=== PATIENT | female | born 1945 | race Caucasian/White ===

== ENCOUNTER 2019-08-24 19:19 | Emergency (ER) | payer MEDICARE, OTHER ==
[~2019-08-24] VITALS: Ht 160 cm; Wt 52.3 kg
[~2019-08-24 19:19] MED LIST: LIDOcaine 1% W/epiNEPHrine 1:100,000 20ml vial ONE
[2019-08-24 19:23] VITALS: BP 186/92
[2019-08-24] MEDS ORDERED: CHOL400T57 PO (20:15)
[2019-08-24] MEDS ORDERED: LEVE750T PO (20:15)
[2019-08-24] MEDS ORDERED: SYN0.088T PO (20:15)
[2019-08-24] MEDS ORDERED: DESV50TA PO (20:15)
[2019-08-24] MEDS ORDERED: OXCA600T37 PO (20:15)
== END 2019-08-24 21:48 | disposition home or self-care (01) ==
LOC: ER 19:20
DX: S01.01XA Laceration without foreign body of scalp, initial encounter (principal); F03.90 Unspecified dementia, unspecified severity, without behavioral disturbance, psychotic disturbance, mood disturbance, and anxiety; Z86.69 Personal history of other diseases of the nervous system and sense organs; Z88.0 Allergy status to penicillin; Z88.2 Allergy status to sulfonamides; Z79.899 Other long term (current) drug therapy; W18.39XA Other fall on same level, initial encounter; Y93.01 Activity, walking, marching and hiking; Y92.89 Other specified places as the place of occurrence of the external cause; Y99.8 Other external cause status
CPT/HCPCS: 12001; 70450; 99284

== ENCOUNTER 2020-09-09 08:51 | Outpatient (CLI) | payer MEDICARE, OTHER ==
[~2020-09-09 08:51] MED LIST changes: +CHOL400T57 PO; +DESV50TA PO; +LEVE750T PO; -LIDOcaine 1% W/epiNEPHrine 1:100,000 20ml vial ONE; +OXCA600T37 PO; +SYN0.088T PO
== END 2020-09-09 23:59 | disposition home or self-care (01) ==
LOC: RAD 08:51
DX: G40.219 Localization-related (focal) (partial) symptomatic epilepsy and epileptic syndromes with complex partial seizures, intractable, without status epilepticus (principal)
CPT/HCPCS: 95816

== ENCOUNTER 2022-06-14 09:41 | Emergency (ER) | payer MEDICARE, OTHER ==
[~2022-06-14] VITALS: Ht 157.5 cm; Wt 52.7 kg
[2022-06-14 10:11] VITALS: BP 138/74
[2022-06-14] MEDS ORDERED: HYDR-3965 PO (11:34)
[2022-06-14] MEDS ORDERED: HYDROcodone/acetaminophen 5mg/325mg tablet PO ONE (11:35)
== END 2022-06-14 12:06 | disposition home or self-care (01) ==
LOC: ER 09:42
DX: S42.291A Other displaced fracture of upper end of right humerus, initial encounter for closed fracture (principal); F03.90 Unspecified dementia, unspecified severity, without behavioral disturbance, psychotic disturbance, mood disturbance, and anxiety; Y93.89 Activity, other specified; X58.XXXA Exposure to other specified factors, initial encounter; Y92.89 Other specified places as the place of occurrence of the external cause; Y99.8 Other external cause status; Z88.0 Allergy status to penicillin; Z88.2 Allergy status to sulfonamides; Z79.899 Other long term (current) drug therapy
CPT/HCPCS: 73030; 99283

== ENCOUNTER 2022-07-03 06:10 | Inpatient (IN) | payer MEDICARE, OTHER, MEDICAID ==
[2022-06-30 16:49] LABS: BASOPHILS # (AUTO) 0.1 X10'3 (0-0.2); EOSINOPHILS # (AUTO) 0.2 X10'3 (0-0.9); MONOCYTES # (AUTO) 0.6 X10'3 (0-0.9); PRE OP HEMOGLOBIN 14.6 g/dL (12.0-16.0)
[2022-06-30 16:51] LABS: BASOPHILS % (AUTO) 0.7 % (0-1); EOSINOPHILS % (AUTO) 1.6 % (0-6); LYMPHOCYTES # (AUTO) 0.9 X10'3 (1.1-4.8); LYMPHOCYTES % (AUTO) 8.8 % (21-51); MEAN CORPUSCULAR HEMOGLOBIN 30.8 PG (27.0-31.0); MEAN CORPUSCULAR HGB CONC 32.2 g/dL (33.0-36.5); MEAN CORPUSCULAR VOLUME 95.7 FL (78-98); MEAN PLATELET VOLUME 9.2 FL (7.4-10.4); MONOCYTES % (AUTO) 5.4 % (2-12); NEUTROPHILS # (AUTO) 8.6 X10'3 (1.8-7.7); NEUTROPHILS % (AUTO) 83.5 % (42-75); PRE OP HEMATOCRIT 45.2 % (35.0-45.0); PRE OP PLATELET COUNT 567 X10'3 (140-440); RED BLOOD COUNT 4.72 X10'6 (4.20-5.60)
[2022-06-30 16:58] LABS: ALBUMIN 3.6 G/DL (3.4-5.0); ALBUMIN/GLOBULIN RATIO 0.9 (1.1-1.5); ALKALINE PHOSPHATASE 144 IU/L (46-116); BLOOD UREA NITROGEN 19 MG/DL (7-18); BUN/CREATININE RATIO 21.3 (6.6-38.0); CALCIUM 8.8 MG/DL (8.5-10.1); CHLORIDE 99 MMOL/L (99-107); CREATININE 0.89 MG/DL (0.40-0.90); PRE OP ALT 20 U/L (30-65); PRE OP ANION GAP 9 (8-16); PRE OP AST 24 U/L (10-37); PRE OP BILIRUB, TOTAL 0.3 MG/DL (0.0-1.0); PRE OP GLUCOSE 155 MG/DL (70-104); PRE OP POTASSIUM 3.9 MMOL/L (3.4-5.1); PRE OP SODIUM 133 MMOL/L (135-145); TOTAL CARBON DIOXIDE 24.9 MMOL/L (24-32); TOTAL PROTEIN 7.5 G/DL (6.4-8.2); eGFR 61 ML/MIN
[2022-07-03] VITALS (29 sets, daily range): BP systolic 116–156; BP diastolic 56–93
[~2022-07-03] VITALS: Ht 157.5 cm; Wt 52.9 kg
[~2022-07-03 06:10] MED LIST changes: -CHOL400T57 PO; +CHOL50CA2 PO; +DONE-46 PO; +LEVE500T PO; -LEVE750T PO; +LEVO112T5 PO; +LOPE-190 PO; +MV-M1TAB57 PO; +OXCA300T16 PO; -OXCA600T37 PO; -SYN0.088T PO; +ceFAZolin inj. 2,000 MG in dextrose 5%-water 100 ML IV ONE; +famotidine 20mg tablet PO ONE; +ringers solution, lacted 1,000 ML IV SCH; +tranexamic acid 650mg tablet PO ONE; +vancomycin/NS 1 GM in NS 250 ML IV ONE
[2022-07-03] MEDS ORDERED: ROPIVAcaine 0.5% (5mg/ml) 30ml vial ONE ×2 (08:42→10:33)
[2022-07-03] MEDS ORDERED: ketorolac trometh. 30mg/ml inj. ONE (08:42)
[2022-07-03] MEDS ORDERED: sevoflurane 250ml liquid IH ONE (09:12)
[2022-07-03] MEDS ORDERED: midazolam 1 mg/ML 2ml injection ONE (09:19)
[2022-07-03] MEDS ORDERED: FENTANYL CITRATE/PF 50 MCG/1 ML VIAL ONE (09:19)
--- NOTE | 2022-07-03 09:40 | NUR ---
CMS NOTE: PT AND CAREGIVER STATED THEY DID NOT RECEIVE RX FOR MUPIROCIN OINTMENT SO IT WAS NOT USED. PT CAREGIVER ALSO STATED THEY DID NOT DO 5 DAYS ON SHOWERING WITH HIBICLENS BUT DID PERFORM 3 SHOWERS WITH IT. PT HAS PALPABLE BILAT RADIAL PULSED. PT WAS INSTRUCTED ON USE OF IS AND RETURN DEMONSTRATION WAS PERFORMED.
[2022-07-03] MEDS ORDERED: ondansetron/PF 4mg/2ml inj IV PRN ×2 (10:25→11:40)
[2022-07-03] MEDS ORDERED: labetalol 20mg/4ml (5mg/ml) syringe IV PRN (10:25)
[2022-07-03] MEDS ORDERED: ringers solution, lacted 1,000 ML IV SCH (10:25)
[2022-07-03] MEDS ORDERED: HYDROmorphone/PF 0.2 MG/ML SYRINGE IV PRN ×2 (10:25)
[2022-07-03] MEDS ORDERED: acetaminophen 1,000mg/100ml IV 100 ML IV PRN (10:25)
[2022-07-03] MEDS ORDERED: morphine 2 MG/ML inj. syringe IV PRN (10:25)
[2022-07-03] MEDS ORDERED: proCHLORperazine 10 MG/2 ml inj IV PRN (10:25)
[2022-07-03] MEDS ORDERED: hydrALAZINE 20mg/ml inj. IV PRN (10:25)
[2022-07-03] MEDS ORDERED: ROPIVAcaine 0.2% (10 MG/5 ML) BOLUS INJECTION INTERSCALE PRN (10:25)
[2022-07-03] MEDS ORDERED: morphine 4 MG/ML inj SYRINge IV PRN (10:25)
[2022-07-03] MEDS ORDERED: meperidine/PF 25mg/ml syringe IV PRN (10:25)
[2022-07-03] MEDS ORDERED: ondansetron/PF 4mg/2ml inj ONE (10:33)
[2022-07-03] MEDS ORDERED: rocuronium 10mg/ml inj IV ONE (10:33)
[2022-07-03] MEDS ORDERED: dexamethasone sod phosphate 4mg/ml inj. ONE (10:33)
[2022-07-03] MEDS ORDERED: LIDOcaine 1%/PF 5ML 10 MG/ML VIAL ONE (10:33)
[2022-07-03] MEDS ORDERED: LIDOcaine 2% (20mg/ml) 5ml vial ONE (10:33)
[2022-07-03] MEDS ORDERED: propofol inj 20 ML IV ONE (10:33)
[2022-07-03] MEDS ORDERED: ePHEDrine 50MG/ML INJ. ONE ×2 (10:33→11:28)
[2022-07-03] MEDS ORDERED: 0.9 % SODIUM CHLORIDE 10 ML VIAL ONE ×2 (10:33→11:28)
--- NOTE | 2022-07-03 11:39 | NUR ---
Received from OR via BED IN STABLE CONDITION , accompanied by Anesthesiologist and SOAKER HELPER report given by SOAKER HELPER AND Anesthesiolgist. Addendum: 07/03/22 at 1200 by Fiorella Moyer RN Amended: Links added.
[2022-07-03] MEDS ORDERED: loperamide 2mg capsule PO PRN (11:40)
[2022-07-03] MEDS ORDERED: HYDROcodone/acetaminophen 10/325mg tab PO PRN ×2 (11:40)
[2022-07-03] MEDS ORDERED: HYDROmorphone inj. 0.5 MG/0.5 ML DISP.SYRIN IV PRN (11:40)
[2022-07-03] MEDS ORDERED: magnesium hydroxide 30ml (MOM) UD suspension PO PRN (11:40)
[2022-07-03] MEDS ORDERED: oxyCODONE IR 5mg (immed. release) tablet PO PRN ×2 (11:40)
[2022-07-03] MEDS ORDERED: naloxone 0.4 mg/ml inj IV PRN (11:40)
[2022-07-03] MEDS ORDERED: acetaminophen 325mg tablet PO PRN (11:40)
[2022-07-03] MEDS ORDERED: diphenhydrAMINE 25mg capsule PO PRN ×2 (11:40)
[2022-07-03] MEDS ORDERED: HYDROmorphone 1 mg/ml syringe IV PRN (11:40)
[2022-07-03] MEDS ORDERED: bisacodyl 10mg suppository rectal RC PRN (11:40)
[2022-07-03] MEDS: ROPIVAcaine 0.2%/PF PUMP/bolus 545 ML INTERSCALE SCH (11:52)
[2022-07-03] MEDS: acetaminophen 325mg tablet PO SCH ×2 (14:00→20:27)
--- NOTE | 2022-07-03 15:39 | NUR ---
PATIENT DISCHARGED FROM PACU IN STABLE CONDITION AFTER REPORT GIVEN TO RN TAKING OVER PATIENTS CARE. PATIENT TRANSFERRED TO ROOM 346A VIA BED WITH RN X2. Addendum: 07/03/22 at 1550 by Fiorella Moyer RN Amended: Links added.
--- NOTE | 2022-07-03 15:45 | NUR ---
Received patient from recovery. Admitted for reverse right shoulder arthroplasty done by Dr. Donald. Dressing to right shoulder is CDI, wrap and powder pack in place with On-Q set a 4, radial pulse is present.
[2022-07-03] MEDS: potassium cl 20mEq in 1/2 NS 1,000 ML IV SCH ×2 (17:44→19:24)
--- NOTE | 2022-07-03 18:52 | NUR ---
Problems reprioritized. Patient report given, questions answered & plan of care reviewed with SONYA Johnson.
[2022-07-03] MEDS: ceFAZolin/D5W- 1GM premix 50 ML IV SCH (19:24)
[2022-07-03] MEDS ORDERED: vancomycin/NS 1 GM ADD-VANTAGE 250 ML IV SCH (20:00)
[2022-07-03] MEDS: sennosides 8.6mg tablet PO SCH (21:00)
--- NOTE | 2022-07-03 21:20 | NUR ---
Increased On Q to 6
[2022-07-03] MEDS: oxcarbazepine 150mg tablet PO SCH (21:21)
[2022-07-03] MEDS: donepezil 5mg tablet PO SCH (21:21)
[2022-07-03] MEDS: levetiracetam 250mg tablet PO SCH (21:22)
[2022-07-04] MEDS: ceFAZolin/D5W- 1GM premix 50 ML IV SCH (01:21)
[2022-07-04] MEDS: acetaminophen 325mg tablet PO SCH ×4 (01:22→20:25)
--- NOTE | 2022-07-04 01:50 | NUR ---
Introduced to IS and how to use it
[2022-07-04] MEDS: potassium cl 20mEq in 1/2 NS 1,000 ML IV SCH (02:14)
[2022-07-04 06:30] VITALS: BP 141/61
--- NOTE | 2022-07-04 06:34 | NUR ---
Problems reprioritized. Patient report given, questions answered & plan of care reviewed with Art. Addendum: 07/04/22 at 0635 by Shiva Dillard RN Amended: Links added.
[2022-07-04] MEDS: levetiracetam 250mg tablet PO SCH ×2 (07:14→20:25)
[2022-07-04] MEDS: oxcarbazepine 150mg tablet PO SCH ×2 (07:14→20:25)
[2022-07-04] MEDS: cholecalciferol (vitamin D3) 1,000 unit (25mcg) tablet PO SCH (07:15)
[2022-07-04] MEDS: beta-carotene(A) w/C & E + minerals tab PO SCH (07:15)
[2022-07-04] MEDS: DESVENLAFAXINE SUCCINATE 50 MG PO SCH (07:15)
[2022-07-04] MEDS: levoTHYROXINE 112mcg tablet PO SCH (07:15)
[2022-07-04 07:28] LABS: BASOPHILS # (AUTO) 0.1 X10'3 (0-0.2); BASOPHILS % (AUTO) 0.5 % (0-1); EOSINOPHILS # (AUTO) 0.1 X10'3 (0-0.9); EOSINOPHILS % (AUTO) 0.6 % (0-6); HEMATOCRIT 32.7 % (35.0-45.0); HEMOGLOBIN 11.1 g/dl (12.0-16.0); LYMPHOCYTES % (AUTO) 8.1 % (21-51); MEAN CORPUSCULAR HEMOGLOBIN 32.1 PG (27.0-31.0); MEAN CORPUSCULAR HGB CONC 34.1 g/dL (33.0-36.5); MEAN CORPUSCULAR VOLUME 94.1 FL (78-98); MEAN PLATELET VOLUME 8.7 FL (7.4-10.4); MONOCYTES # (AUTO) 0.8 X10'3 (0-0.9); NEUTROPHILS # (AUTO) 9.9 X10'3 (1.8-7.7); NEUTROPHILS % (AUTO) 83.8 % (42-75); PLATELET COUNT 431 X10'3 (140-440); RED BLOOD COUNT 3.47 X10'6 (4.20-5.60); RED CELL DISTRIBUTION WIDTH 16.8 % (11.5-14.5); WHITE BLOOD COUNT 11.9 X10'3 (4.5-11.0)
[2022-07-04 09:46] LABS: ANION GAP 6 (8-16); CHLORIDE 97 MMOL/L (99-107); SODIUM 130 MMOL/L (135-145); TOTAL CARBON DIOXIDE 27.3 MMOL/L (24-32)
[2022-07-04] MEDS: aspirin 325mg tablet PO SCH (10:45)
--- NOTE | 2022-07-04 10:56 | NUR ---
attempted to call dr renteria about pts lab Na, pt is on fluids with 1/2 ns
[2022-07-04 11:00] VITALS: BP 133/67
[2022-07-04] MEDS: normal saline 1000ml 1,000 ML IV SCH ×2 (12:18→23:36)
[2022-07-04] MEDS ORDERED: HYDROcodone/acetaminophen 5mg/325mg tablet PO PRN ×2 (14:00)
[2022-07-04] MEDS ORDERED: traMADol 50MG tablet PO PRN ×2 (14:00)
[2022-07-04] MEDS ORDERED: ketorolac tromethamine 15mg/ml inj. IV ONE (14:00)
--- NOTE | 2022-07-04 15:40 | NUR ---
Dr Donald called patients son King and spoke to him re: Dr Donald does not believe patient needs to go to rehab, he feels her needs are more penitentiary needs. Patients son Per Dr Donald states that [facility] will take the patient. Per Dr Donald ok for patient to go to [facility].
[2022-07-04 18:00] VITALS: BP 168/78
--- NOTE | 2022-07-04 18:23 | NUR ---
Problems reprioritized. Patient report given, questions answered & plan of care reviewed with ajay cole.
[2022-07-04] MEDS: sennosides 8.6mg tablet PO SCH (20:21)
[2022-07-04] MEDS: donepezil 5mg tablet PO SCH (20:24)
[2022-07-04 22:00] VITALS: BP 190/85
[2022-07-04 23:45] VITALS: BP 172/89
[2022-07-05 02:00] VITALS: BP 166/82
[2022-07-05] MEDS: acetaminophen 325mg tablet PO SCH ×2 (02:36→08:10)
[2022-07-05 05:00] VITALS: BP 165/66
[2022-07-05 06:46] LABS: BASOPHILS % (AUTO) 0.4 % (0-1); EOSINOPHILS # (AUTO) 0.2 X10'3 (0-0.9); EOSINOPHILS % (AUTO) 1.6 % (0-6); HEMATOCRIT 32.7 % (35.0-45.0); HEMOGLOBIN 11.1 g/dl (12.0-16.0); LYMPHOCYTES # (AUTO) 0.7 X10'3 (1.1-4.8); LYMPHOCYTES % (AUTO) 7.1 % (21-51); MEAN CORPUSCULAR HEMOGLOBIN 31.8 PG (27.0-31.0); MEAN CORPUSCULAR HGB CONC 33.8 g/dL (33.0-36.5); MEAN CORPUSCULAR VOLUME 94.1 FL (78-98); MEAN PLATELET VOLUME 8.8 FL (7.4-10.4); MONOCYTES # (AUTO) 0.8 X10'3 (0-0.9); MONOCYTES % (AUTO) 7.9 % (2-12); NEUTROPHILS # (AUTO) 8.2 X10'3 (1.8-7.7); PLATELET COUNT 418 X10'3 (140-440); RED BLOOD COUNT 3.48 X10'6 (4.20-5.60); RED CELL DISTRIBUTION WIDTH 16.6 % (11.5-14.5); WHITE BLOOD COUNT 9.8 X10'3 (4.5-11.0)
--- NOTE | 2022-07-05 07:00 | NUR ---
Patient in room [facility]. I have received report from Selina and had the opportunity to ask questions and assume patient care.
[2022-07-05] MEDS: DESVENLAFAXINE SUCCINATE 50 MG PO SCH (08:00)
[2022-07-05] MEDS: levoTHYROXINE 112mcg tablet PO SCH (08:09)
[2022-07-05] MEDS: oxcarbazepine 150mg tablet PO SCH ×2 (08:09→20:49)
[2022-07-05] MEDS: cholecalciferol (vitamin D3) 1,000 unit (25mcg) tablet PO SCH (08:09)
[2022-07-05] MEDS: beta-carotene(A) w/C & E + minerals tab PO SCH (08:09)
[2022-07-05] MEDS: levetiracetam 250mg tablet PO SCH ×2 (08:10→20:49)
[2022-07-05] MEDS: aspirin 325mg tablet PO SCH (09:42)
[2022-07-05 11:00] VITALS: BP 177/77
[2022-07-05] MEDS ORDERED: acetaminophen 325mg tablet PO PRN (11:40)
--- NOTE | 2022-07-05 16:22 | NUR ---
Pt believed to have had an unwitnessed seizure this morning after breakfast. Pt was up in chair for breakfast and then returned to bed after. Pt appeared to be sleeping deeply. Pt very difficult to arouse but did open eyes and respond briefly. Pt would immediately fall back asleep. Pt was believed to be post ictal. Caregiver came to visit pt and said that pt did not appear to be in her normal state. Pt did wake up at lunchtime and was very confused. Pt did not know where she was or why she was here. She believed her was still alive and wanted to go home. Tracey Angulo ordered labs, shoulder xray, blue liliam consult and hospitalist consultation. Pt currently resting in bed awake, but still confused as to why she is here.
[2022-07-05] MEDS ORDERED: hydrALAZINE 20mg/ml inj. IV ONE (16:30)
[2022-07-05] MEDS: ROPIVAcaine 0.2%/PF PUMP/bolus 545 ML INTERSCALE SCH (16:43)
[2022-07-05 18:00] VITALS: BP 138/58
--- NOTE | 2022-07-05 18:07 | NUR ---
Problems reprioritized. Patient report given, questions answered & plan of care reviewed with Selina.
[2022-07-05] MEDS: sennosides 8.6mg tablet PO SCH (20:45)
[2022-07-05] MEDS: donepezil 5mg tablet PO SCH (20:50)
[2022-07-05] MEDS: normal saline 1000ml 1,000 ML IV SCH (20:50)
[2022-07-05 22:00] VITALS: BP 178/71
[2022-07-06 02:00] VITALS: BP 124/77
[2022-07-06 06:33] LABS: BASOPHILS # (AUTO) 0.1 X10'3 (0-0.2); BASOPHILS % (AUTO) 0.7 % (0-1); EOSINOPHILS # (AUTO) 0.3 X10'3 (0-0.9); EOSINOPHILS % (AUTO) 2.6 % (0-6); HEMATOCRIT 34.6 % (35.0-45.0); HEMOGLOBIN 11.6 g/dl (12.0-16.0); LYMPHOCYTES # (AUTO) 0.9 X10'3 (1.1-4.8); LYMPHOCYTES % (AUTO) 7.9 % (21-51); MEAN CORPUSCULAR HEMOGLOBIN 31.7 PG (27.0-31.0); MEAN CORPUSCULAR HGB CONC 33.6 g/dL (33.0-36.5); MEAN CORPUSCULAR VOLUME 94.5 FL (78-98); MEAN PLATELET VOLUME 8.8 FL (7.4-10.4); MONOCYTES # (AUTO) 0.8 X10'3 (0-0.9); MONOCYTES % (AUTO) 6.8 % (2-12); NEUTROPHILS # (AUTO) 9.3 X10'3 (1.8-7.7); PLATELET COUNT 469 X10'3 (140-440); RED BLOOD COUNT 3.66 X10'6 (4.20-5.60); WHITE BLOOD COUNT 11.4 X10'3 (4.5-11.0)
[2022-07-06 06:57] LABS: ALANINE AMINOTRANSFERASE 15 U/L (12-78); ALBUMIN 3.1 G/DL (3.4-5.0); ALBUMIN/GLOBULIN RATIO 0.9 (1.1-1.5); ALKALINE PHOSPHATASE 113 IU/L (46-116); ANION GAP 6 (8-16); ASPARTATE AMINO TRANSFERASE 25 U/L (10-37); BILIRUBIN,TOTAL 0.5 MG/DL (0.1-1.0); BLOOD UREA NITROGEN 8 MG/DL (7-18); CALCIUM 7.7 MG/DL (8.5-10.1); CHLORIDE 100 MMOL/L (99-107); GLUCOSE 92 MG/DL (70-104); SODIUM 135 MMOL/L (135-145); TOTAL CARBON DIOXIDE 28.6 MMOL/L (24-32); TOTAL PROTEIN 6.6 G/DL (6.4-8.2); eGFR > 90 ML/MIN
[2022-07-06 06:58] LABS: POTASSIUM 2.9 MMOL/L (3.5-5.1)
[2022-07-06 07:00] VITALS: BP 183/78
--- NOTE | 2022-07-06 07:06 | NUR ---
PAGER ID: [phone] MESSAGE: [phone] Gali Carmichael: critical K 2.9. would you like replacement protocol ordered? thanks, gissell [phone]
[2022-07-06] MEDS: levoTHYROXINE 112mcg tablet PO SCH (07:56)
[2022-07-06] MEDS: beta-carotene(A) w/C & E + minerals tab PO SCH (07:56)
[2022-07-06] MEDS: levetiracetam 250mg tablet PO SCH (07:57)
[2022-07-06] MEDS: cholecalciferol (vitamin D3) 1,000 unit (25mcg) tablet PO SCH (07:57)
[2022-07-06] MEDS: aspirin 325mg tablet PO SCH (07:57)
[2022-07-06] MEDS: oxcarbazepine 150mg tablet PO SCH (07:57)
[2022-07-06] MEDS: normal saline 1000ml 1,000 ML IV SCH (08:00)
[2022-07-06] MEDS: DESVENLAFAXINE SUCCINATE 50 MG PO SCH (08:00)
[2022-07-06] MEDS ORDERED: potassium Cl 20 mEq SR tablet PO PRN ×2 (10:15)
[2022-07-06] MEDS ORDERED: magnesium 2GM in 50ml NS 50 ML IV PRN (10:15)
[2022-07-06] MEDS ORDERED: magnesium 4gm in 100ml NS 100 ML IV PRN (10:15)
[2022-07-06] MEDS ORDERED: potassium Cl 40MEQ/1/2NS 520ml 520 ML IV PRN (10:15)
[2022-07-06] MEDS ORDERED: magnesium Cl slow-release 64mg tablet PO PRN (10:15)
--- NOTE | 2022-07-06 11:24 | NUR ---
Report called to Michelle at [facility], all questions answered. IV removed, all belongings gathered in room. Awaiting transportation.
[2022-07-06 11:30] VITALS: BP 175/79
[2022-07-06] MEDS ORDERED: K and/or MAG REPLACEMENT MC SCH (20:00)
== END 2022-07-06 12:02 | DRG 483 ==
LOC: PAS IN 06:10 → SUR 3N 15:53
PROVIDERS: ADMIT Orthopaedic Surgery; ATTEND Orthopaedic Surgery
PROC: 0LS30ZZ Reposition Right Upper Arm Tendon, Open Approach (ICD-10-PCS; 2022-07-03)
PROC: 3E0T3BZ Introduction of Anesthetic Agent into Peripheral Nerves and Plexi, Percutaneous Approach (ICD-10-PCS; 2022-07-03)
PROC: 3E0T33Z Introduction of Anti-inflammatory into Peripheral Nerves and Plexi, Percutaneous Approach (ICD-10-PCS; 2022-07-03)
PROC: 0RRJ00Z Replacement of Right Shoulder Joint with Reverse Ball and Socket Synthetic Substitute, Open Approach (ICD-10-PCS; principal; 2022-07-03 09:16)
DX: S42.241A 4-part fracture of surgical neck of right humerus, initial encounter for closed fracture (principal); D62 Acute posthemorrhagic anemia; E87.1 Hypo-osmolality and hyponatremia; G40.802 Other epilepsy, not intractable, without status epilepticus; Z20.822 Contact with and (suspected) exposure to COVID-19; M19.011 Primary osteoarthritis, right shoulder; F32.A Depression, unspecified; E03.9 Hypothyroidism, unspecified; R41.0 Disorientation, unspecified; Z88.0 Allergy status to penicillin; Z88.2 Allergy status to sulfonamides; Z79.899 Other long term (current) drug therapy
CPT/HCPCS: 36415; 73020; 80051; 80053; 80177; 80183; 82948; 85025; 87081; 87635; 93005; 97110; 97116; 97161; 97530; A4615; G0378; J0360; J0690; J1100; J1170; J1885; J2250; J2405; J2704; J2795; J3010; J3370; J3480; J3490; J7030; J7060; J7120

== ENCOUNTER 2023-06-29 20:16 | Emergency (ER) | payer MEDICARE, OTHER, MEDICAID ==
[~2023-06-29] VITALS: Ht 149.9 cm; Wt 55.0 kg
[~2023-06-29 20:16] MED LIST changes: -ceFAZolin inj. 2,000 MG in dextrose 5%-water 100 ML IV ONE; -famotidine 20mg tablet PO ONE; -ringers solution, lacted 1,000 ML IV SCH; -tranexamic acid 650mg tablet PO ONE; -vancomycin/NS 1 GM in NS 250 ML IV ONE
[2023-06-29 21:07] LABS: BASOPHILS # (AUTO) 0.1 X10'3 (0-0.2); EOSINOPHILS # (AUTO) 0.2 X10'3 (0-0.9); EOSINOPHILS % (AUTO) 1.6 % (0-6); LYMPHOCYTES # (AUTO) 0.9 X10'3 (1.1-4.8); MONOCYTES # (AUTO) 0.5 X10'3 (0-0.9)
[2023-06-29 21:08] LABS: BASOPHILS % (AUTO) 0.4 % (0-1); HEMATOCRIT 53.1 % (35.0-45.0); HEMOGLOBIN 16.8 g/dl (12.0-16.0); LYMPHOCYTES % (AUTO) 6.1 % (21-51); MEAN CORPUSCULAR HEMOGLOBIN 25.7 PG (27.0-31.0); MEAN CORPUSCULAR HGB CONC 31.7 g/dL (33.0-36.5); MEAN CORPUSCULAR VOLUME 81.2 FL (78-98); MEAN PLATELET VOLUME 8.5 FL (7.4-10.4); MONOCYTES % (AUTO) 3.4 % (2-12); NEUTROPHILS # (AUTO) 13.1 X10'3 (1.8-7.7); NEUTROPHILS % (AUTO) 88.5 % (42-75); PLATELET COUNT 526 X10'3 (140-440); RED BLOOD COUNT 6.54 X10'6 (4.20-5.60); RED CELL DISTRIBUTION WIDTH 18.8 % (11.5-14.5); WHITE BLOOD COUNT 14.8 X10'3 (4.5-11.0)
[2023-06-29 21:22] LABS: ALANINE AMINOTRANSFERASE 32 U/L (12-78); ALBUMIN 3.5 G/DL (3.4-5.0); ALBUMIN/GLOBULIN RATIO 0.8 (1.1-1.5); ALKALINE PHOSPHATASE 122 IU/L (46-116); ANION GAP 10 (8-16); ASPARTATE AMINO TRANSFERASE 43 U/L (10-37); BILIRUBIN,TOTAL 0.6 MG/DL (0.1-1.0); BLOOD UREA NITROGEN 10 MG/DL (7-18); BUN/CREATININE RATIO 17.9 (10.0-20.0); CALCIUM 8.9 MG/DL (8.5-10.1); CHLORIDE 94 MMOL/L (99-107); CREATININE 0.56 MG/DL (0.40-0.90); GLUCOSE 121 MG/DL (70-104); POTASSIUM 3.9 MMOL/L (3.5-5.1); SODIUM 132 MMOL/L (135-145); TOTAL CARBON DIOXIDE 27.9 MMOL/L (24-32); TOTAL PROTEIN 7.9 G/DL (6.4-8.2); eCRCL 56 ML/MIN; eGFR > 90 ML/MIN
[2023-06-29 21:31] LABS: PRO BRAIN NATRIURETIC PEPTIDE 871 PG/ML (0-450)
[2023-06-29 21:39] LABS: ANISOCYTOSIS 2+; HYPOCHROMASIA 1+; POIKILOCYTOSIS 2+
[2023-06-29 21:40] LABS: ELLIPTOCYTES 2+; SCHISTOCYTES FEW
[2023-06-29 21:41] LABS: LARGE PLATELETS FEW; PLATELET ESTIMATE INCREASED
[2023-06-29] MEDS ORDERED: normal saline 1000ML IV soln IVB ONE (21:45)
[2023-06-29 23:09] LABS: BILIRUBIN,URINE NEGATIVE (Neg); CLARITY,URINE SLIGHTLY CLOUDY (Clear); COLOR,URINE YELLOW (Yellow); GLUCOSE, URINE NEGATIVE (Neg); KETONES,URINE TRACE mg/dl (Neg); LEUKOCYTE ESTERASE ,URINE SMALL (Neg); NITRITES, URINE NEGATIVE (Neg); OCCULT BLOOD,URINE NEGATIVE (Neg); PROTEIN,URINE 30 mg/dl (Neg); UROBILINOGEN,URINE 0.2 E.U/dL (0.2-1.0)
[2023-06-29 23:24] LABS: UA COLLECTION TYPE CLN CATCH MIDSTREAM
[2023-06-29 23:25] LABS: MUCUS STRANDS FEW /LPF (Neg); SQUAMOUS EPITHELIAL CELL,UR MODERATE /LPF (FEW)
[2023-06-29 23:28] LABS: BACTERIA,URINE 3+ /HPF (Neg); RBC,URINE NONE SEEN /HPF (0-2)
[2023-06-29] MEDS ORDERED: CIPR-260 PO (23:39)
[2023-06-29] MEDS ORDERED: ciprofloxacin 250mg tablet PO ONE (23:40)
[2023-06-29 23:57] VITALS: BP 175/95; PULSE 77; RESP 16; TEMP 98.7; O2SAT 95
== END 2023-06-29 23:58 | disposition home or self-care (01) ==
LOC: ER 20:16
DX: N39.0 Urinary tract infection, site not specified (principal)
CPT/HCPCS: 36415; 71045; 80053; 81001; 83880; 84145; 84484; 85008; 85025; 93005; 99285; J7030; J7040

== ENCOUNTER 2023-07-19 12:04 | Inpatient (IN) | payer MEDICARE, OTHER, MEDICAID ==
[~2023-07-19] VITALS: Ht 157.5 cm; Wt 52.5 kg
[~2023-07-19 12:04] MED LIST changes: +CIPR-260 PO
[2023-07-19 12:30] LABS: BASOPHILS # (AUTO) 0.1 X10'3 (0-0.2); BASOPHILS % (AUTO) 0.3 % (0-1); EOSINOPHILS % (AUTO) 0 % (0-6); HEMATOCRIT 50.7 % (35.0-45.0); HEMOGLOBIN 16.2 g/dl (12.0-16.0); LYMPHOCYTES # (AUTO) 0.4 X10'3 (1.1-4.8); LYMPHOCYTES % (AUTO) 2.2 % (21-51); MEAN CORPUSCULAR HEMOGLOBIN 26.1 PG (27.0-31.0); MEAN CORPUSCULAR HGB CONC 31.9 g/dL (33.0-36.5); MEAN CORPUSCULAR VOLUME 81.8 FL (78-98); MEAN PLATELET VOLUME 8.5 FL (7.4-10.4); MONOCYTES # (AUTO) 1.3 X10'3 (0-0.9); NEUTROPHILS # (AUTO) 16.3 X10'3 (1.8-7.7); NEUTROPHILS % (AUTO) 90.5 % (42-75); PLATELET COUNT 501 X10'3 (140-440)
[2023-07-19 12:50] LABS: ALANINE AMINOTRANSFERASE 43 U/L (12-78); ALBUMIN 3.1 G/DL (3.4-5.0); ALBUMIN/GLOBULIN RATIO 0.7 (1.1-1.5); ALKALINE PHOSPHATASE 168 IU/L (46-116); ANION GAP 10 (8-16); ASPARTATE AMINO TRANSFERASE 37 U/L (10-37); BLOOD UREA NITROGEN 16 MG/DL (7-18); BUN/CREATININE RATIO 23.5 (10.0-20.0); CALCIUM 9.1 MG/DL (8.5-10.1); CHLORIDE 94 MMOL/L (99-107); CREATININE 0.68 MG/DL (0.40-0.90); GLUCOSE 124 MG/DL (70-104); POTASSIUM 3.9 MMOL/L (3.5-5.1); SODIUM 128 MMOL/L (135-145); TOTAL CARBON DIOXIDE 23.8 MMOL/L (24-32); TOTAL PROTEIN 7.8 G/DL (6.4-8.2); eCRCL 53 ML/MIN; eGFR 83 ML/MIN
[2023-07-19 13:00] LABS: PRO BRAIN NATRIURETIC PEPTIDE 7892 PG/ML (0-450)
[2023-07-19 13:25] LABS: ANISOCYTOSIS 2+; GIANT PLATELET FEW; LARGE PLATELETS FEW; NUCLEATED RED BLOOD CELLS 1 /100WBC (0-0); PLATELET ESTIMATE INCREASED; POLYCHROMASIA FEW; TEAR DROP CELLS FEW; TOTAL CELLS COUNTED 100
[2023-07-19 13:26] LABS: POIKILOCYTOSIS 1+
[2023-07-19] MEDS: dexamethasone sod phosphate 10mg/ml inj IM STA (13:44)
[2023-07-19 13:45] VITALS: PULSE 85; RESP 16; RESP 18; O2SAT 92; O2SAT 98
[2023-07-19] MEDS: ipratropium/albuterol 3ml nebule NEB STA (13:45)
[2023-07-19] MEDS ORDERED: magnesium 2GM in 50ml NS 50 ML IV PRN (22:25)
[2023-07-19] MEDS ORDERED: ondansetron/PF 4mg/2ml inj IV PRN (22:25)
[2023-07-19] MEDS ORDERED: magnesium Cl slow-release 64mg tablet PO PRN (22:25)
[2023-07-19] MEDS ORDERED: potassium Cl 20 mEq SR tablet PO PRN (22:25)
[2023-07-19] MEDS ORDERED: potassium Cl 40MEQ/1/2NS 520ml 520 ML IV PRN (22:25)
[2023-07-19] MEDS ORDERED: acetaminophen 325mg tablet PO PRN (22:25)
[2023-07-19] MEDS ORDERED: magnesium 4gm in 100ml NS 100 ML IV PRN (22:25)
[2023-07-19] MEDS: levoFLOXACIN-Levaquin 500mg/D5 100 ML IV SCH (22:55)
[2023-07-20] VITALS (16 sets, daily range): BP systolic 138–152; BP diastolic 78–84; PULSE 78–103; RESP 16–25; TEMP 97.7–98.1; O2SAT 92–97
[2023-07-20] MEDS: albuterol 2.5 MG/3 ML nebule NEB SCH (00:52)
[2023-07-20] MEDS: furosemide 40mg/4ml inj IV SCH (07:21)
[2023-07-20] MEDS: heparin, porcine 5000 units/ml vial SQ SCH (07:27)
[2023-07-20] MEDS ORDERED: furosemide 40mg/4ml inj IV SCH (08:00)
[2023-07-20 08:19] LABS: BASOPHILS % (AUTO) 0.2 % (0-1); EOSINOPHILS % (AUTO) 0.2 % (0-6); HEMATOCRIT 46.7 % (35.0-45.0); HEMOGLOBIN 14.8 g/dl (12.0-16.0); LYMPHOCYTES # (AUTO) 0.8 X10'3 (1.1-4.8); LYMPHOCYTES % (AUTO) 4.8 % (21-51); MEAN CORPUSCULAR HEMOGLOBIN 25.6 PG (27.0-31.0); MEAN CORPUSCULAR HGB CONC 31.6 g/dL (33.0-36.5); MEAN CORPUSCULAR VOLUME 81.1 FL (78-98); MEAN PLATELET VOLUME 8.6 FL (7.4-10.4); MONOCYTES # (AUTO) 1.3 X10'3 (0-0.9); MONOCYTES % (AUTO) 7.6 % (2-12); NEUTROPHILS # (AUTO) 14.6 X10'3 (1.8-7.7); NEUTROPHILS % (AUTO) 87.2 % (42-75); PLATELET COUNT 474 X10'3 (140-440); RED BLOOD COUNT 5.76 X10'6 (4.20-5.60); RED CELL DISTRIBUTION WIDTH 19.7 % (11.5-14.5); WHITE BLOOD COUNT 16.8 X10'3 (4.5-11.0)
[2023-07-20 08:34] LABS: ALANINE AMINOTRANSFERASE 43 U/L (12-78); ALBUMIN 2.6 G/DL (3.4-5.0); ALBUMIN/GLOBULIN RATIO 0.6 (1.1-1.5); ALKALINE PHOSPHATASE 145 IU/L (46-116); ANION GAP 10 (8-16); ASPARTATE AMINO TRANSFERASE 40 U/L (10-37); BILIRUBIN,TOTAL 0.6 MG/DL (0.1-1.0); BLOOD UREA NITROGEN 18 MG/DL (7-18); CALCIUM 8.5 MG/DL (8.5-10.1); CHLORIDE 94 MMOL/L (99-107); CREATININE 0.62 MG/DL (0.40-0.90); GLUCOSE 97 MG/DL (70-104); POTASSIUM 3.5 MMOL/L (3.5-5.1); SODIUM 129 MMOL/L (135-145); TOTAL CARBON DIOXIDE 24.6 MMOL/L (24-32); TOTAL PROTEIN 6.9 G/DL (6.4-8.2); eCRCL 58 ML/MIN; eGFR > 90 ML/MIN
[2023-07-20 14:21] LABS: ABG BASE EXCESS 2.8 mmol/L (-2.0-2.0); ABG HCO3 24.4 mmol/L (22.0-26.0); ABG OXYGEN SATURATION 94.2 % (94-97); ABG PCO2 (T) 29.9 mmHg (32.0-45.0); ABG PO2 (T) 67.2 mmHg (75.0-100.0); ALLEN'S TEST POSITIVE; FCOHb 0.3 % (0.0-3.9); FHHb 5.8 % (0.0-5.0); FMetHb 0.5 % (0.0-1.5); FO2Hb 93.4 % (94-97); MODE NASAL CANNULA
[2023-07-20] MEDS: carVEDilol 3.125mg tablet PO SCH (20:07)
[2023-07-20] MEDS: donepezil 5mg tablet PO SCH (20:12)
[2023-07-20] MEDS: levetiracetam 250mg tablet PO SCH (20:12)
[2023-07-20] MEDS: oxcarbazepine 150mg tablet PO SCH (23:51)
[2023-07-21] VITALS (15 sets, daily range): BP systolic 111–148; BP diastolic 59–88; PULSE 6–96; RESP 4–31; TEMP 97.2–98; O2SAT 90–100
[2023-07-21 07:00] LABS: BASOPHILS # (AUTO) 0.1 X10'3 (0-0.2); EOSINOPHILS % (AUTO) 0.2 % (0-6); HEMOGLOBIN 14.7 g/dl (12.0-16.0); MEAN CORPUSCULAR HEMOGLOBIN 25.5 PG (27.0-31.0); MEAN PLATELET VOLUME 8.9 FL (7.4-10.4); RED CELL DISTRIBUTION WIDTH 19.6 % (11.5-14.5)
[2023-07-21 07:02] LABS: HEMATOCRIT 46.5 % (35.0-45.0); LYMPHOCYTES # (AUTO) 0.9 X10'3 (1.1-4.8); LYMPHOCYTES % (AUTO) 6.4 % (21-51); MEAN CORPUSCULAR HGB CONC 31.7 g/dL (33.0-36.5); MEAN CORPUSCULAR VOLUME 80.6 FL (78-98); MONOCYTES # (AUTO) 1.2 X10'3 (0-0.9); MONOCYTES % (AUTO) 8.6 % (2-12); NEUTROPHILS # (AUTO) 11.6 X10'3 (1.8-7.7); NEUTROPHILS % (AUTO) 83.8 % (42-75); PLATELET COUNT 481 X10'3 (140-440); RED BLOOD COUNT 5.77 X10'6 (4.20-5.60); WHITE BLOOD COUNT 13.8 X10'3 (4.5-11.0)
[2023-07-21 07:03] LABS: ALANINE AMINOTRANSFERASE 44 U/L (12-78); ALBUMIN 2.5 G/DL (3.4-5.0); ALBUMIN/GLOBULIN RATIO 0.6 (1.1-1.5); ALKALINE PHOSPHATASE 137 IU/L (46-116); ANION GAP 10 (8-16); ASPARTATE AMINO TRANSFERASE 41 U/L (10-37); BILIRUBIN,TOTAL 0.6 MG/DL (0.1-1.0); BLOOD UREA NITROGEN 15 MG/DL (7-18); BUN/CREATININE RATIO 27.8 (10.0-20.0); CHLORIDE 96 MMOL/L (99-107); CREATININE 0.54 MG/DL (0.40-0.90); GLUCOSE 83 MG/DL (70-104); SODIUM 134 MMOL/L (135-145); TOTAL CARBON DIOXIDE 28.1 MMOL/L (24-32); TOTAL PROTEIN 6.7 G/DL (6.4-8.2); eCRCL 67 ML/MIN; eGFR > 90 ML/MIN
[2023-07-21 07:50] LABS: PLATELET ESTIMATE INCREASED; TOTAL CELLS COUNTED 100
[2023-07-21 07:51] LABS: ANISOCYTOSIS 2+; ELLIPTOCYTES FEW; POIKILOCYTOSIS FEW; POLYCHROMASIA FEW; TOXIC GRANULATION 1+; TOXIC VACUOLATION FEW
[2023-07-21] MEDS: venlafaxine 25mg tablet PO SCH (08:00)
[2023-07-21] MEDS: oxcarbazepine 150mg tablet PO SCH (08:00)
[2023-07-21] MEDS: potassium Cl 20 mEq SR tablet PO PRN (08:35)
[2023-07-21] MEDS: levoTHYROXINE 112mcg tablet PO SCH (08:36)
[2023-07-21] MEDS: multivitamins, therapeutics tablet PO SCH (08:36)
[2023-07-21] MEDS: cholecalciferol (vitamin D3) 1,000 unit (25mcg) tablet PO SCH (08:37)
[2023-07-21] MEDS: lisinopril 2.5mg tablet PO SCH (08:37)
[2023-07-21] MEDS: levetiracetam 250mg tablet PO SCH (08:38)
[2023-07-21] MEDS ORDERED: LACO100T4 PO (10:13)
[2023-07-21] MEDS: acetaminophen 325mg tablet PO PRN (16:57)
[2023-07-22] VITALS (8 sets, daily range): BP systolic 143–145; BP diastolic 72–84; PULSE 63–72; RESP 16–18; TEMP 97.8–98.8; O2SAT 92–100
[2023-07-22 06:08] LABS: BASOPHILS % (AUTO) 0 % (0-1); EOSINOPHILS # (AUTO) 0.2 X10'3 (0-0.9); EOSINOPHILS % (AUTO) 1.9 % (0-6); HEMATOCRIT 47.6 % (35.0-45.0); HEMOGLOBIN 15.1 g/dl (12.0-16.0); LYMPHOCYTES # (AUTO) 1.1 X10'3 (1.1-4.8); LYMPHOCYTES % (AUTO) 9.3 % (21-51); MEAN CORPUSCULAR HEMOGLOBIN 25.6 PG (27.0-31.0); MEAN CORPUSCULAR HGB CONC 31.7 g/dL (33.0-36.5); MEAN CORPUSCULAR VOLUME 80.8 FL (78-98); MEAN PLATELET VOLUME 8.6 FL (7.4-10.4); MONOCYTES # (AUTO) 0.7 X10'3 (0-0.9); MONOCYTES % (AUTO) 6.1 % (2-12); NEUTROPHILS # (AUTO) 9.6 X10'3 (1.8-7.7); NEUTROPHILS % (AUTO) 82.7 % (42-75); PLATELET COUNT 490 X10'3 (140-440); RED BLOOD COUNT 5.88 X10'6 (4.20-5.60); RED CELL DISTRIBUTION WIDTH 19.6 % (11.5-14.5); WHITE BLOOD COUNT 11.7 X10'3 (4.5-11.0)
[2023-07-22 06:30] LABS: ALANINE AMINOTRANSFERASE 47 U/L (12-78); ALBUMIN 2.3 G/DL (3.4-5.0); ALBUMIN/GLOBULIN RATIO 0.5 (1.1-1.5); ALKALINE PHOSPHATASE 130 IU/L (46-116); ANION GAP 8 (8-16); ASPARTATE AMINO TRANSFERASE 41 U/L (10-37); BILIRUBIN,TOTAL 0.5 MG/DL (0.1-1.0); BLOOD UREA NITROGEN 27 MG/DL (7-18); BUN/CREATININE RATIO 43.5 (10.0-20.0); CALCIUM 8.4 MG/DL (8.5-10.1); CHLORIDE 99 MMOL/L (99-107); CREATININE 0.62 MG/DL (0.40-0.90); GLUCOSE 94 MG/DL (70-104); POTASSIUM 3.7 MMOL/L (3.5-5.1); SODIUM 136 MMOL/L (135-145); TOTAL CARBON DIOXIDE 28.9 MMOL/L (24-32); TOTAL PROTEIN 6.8 G/DL (6.4-8.2); eCRCL 58 ML/MIN; eGFR > 90 ML/MIN
[2023-07-22] MEDS ORDERED: OXCA300T16 PO (11:45)
[2023-07-22] MEDS ORDERED: LISI2.5T14 PO (11:45)
[2023-07-22] MEDS ORDERED: LEVE500T PO (11:45)
[2023-07-22] MEDS ORDERED: COR3.125T PO (11:45)
[2023-07-22] MEDS ORDERED: FURO-150 PO (11:45)
[2023-07-22] MEDS ORDERED: LEVO-65 PO (11:47)
[2023-07-22] MEDS ORDERED: ALBU8HFA PO (11:47)
[2023-07-22] MEDS ORDERED: PRED20TA PO (11:51)
== END 2023-07-22 14:43 | disposition home or self-care (01) | DRG 871 ==
LOC: ER 12:06 → ED HOLD 22:30 → PCU 3S 07-20 17:16
PROVIDERS: ADMIT Internal Medicine; ATTEND Family Medicine
DX: A41.9 Sepsis, unspecified organism (principal); I50.23 Acute on chronic systolic (congestive) heart failure; J18.9 Pneumonia, unspecified organism; E87.1 Hypo-osmolality and hyponatremia; I11.0 Hypertensive heart disease with heart failure; F03.90 Unspecified dementia, unspecified severity, without behavioral disturbance, psychotic disturbance, mood disturbance, and anxiety; G40.909 Epilepsy, unspecified, not intractable, without status epilepticus; E03.9 Hypothyroidism, unspecified; D75.839 Thrombocytosis, unspecified; Z88.0 Allergy status to penicillin; Z88.2 Allergy status to sulfonamides
CPT/HCPCS: 36415; 36600; 71045; 80053; 82803; 83605; 83880; 84145; 84484; 85007; 85018; 85025; 85651; 87040; 87502; 87503; 87634; 87811; 93005; 93306; 94640; 94760; 99285; A4615; G0378; J1100; J1644; J1940; J1956; J7040

== ENCOUNTER 2024-02-18 09:40 | Emergency (ER) | payer MEDICARE, OTHER, MEDICAID ==
[~2024-02-18] VITALS: Ht 149.9 cm; Wt 50.6 kg
[~2024-02-18 09:40] MED LIST changes: -CIPR-260 PO; +COR3.125T PO; +FURO-150 PO; +LACO100T4 PO; +LISI2.5T14 PO
[2024-02-18 09:58] LABS: BASOPHILS # (AUTO) 0.1 X10'3 (0-0.2); BASOPHILS % (AUTO) 0.8 % (0-1); EOSINOPHILS % (AUTO) 0.4 % (0-6); HEMATOCRIT 36.3 % (35.0-45.0); HEMOGLOBIN 12.7 g/dl (12.0-16.0); LYMPHOCYTES # (AUTO) 0.9 X10'3 (1.1-4.8); LYMPHOCYTES % (AUTO) 12.4 % (21-51); MEAN CORPUSCULAR HEMOGLOBIN 39.3 PG (27.0-31.0); MEAN CORPUSCULAR VOLUME 112.3 FL (78-98); MEAN PLATELET VOLUME 7.6 FL (7.4-10.4); MONOCYTES # (AUTO) 0.4 X10'3 (0-0.9); MONOCYTES % (AUTO) 5.6 % (2-12); NEUTROPHILS # (AUTO) 5.7 X10'3 (1.8-7.7); NEUTROPHILS % (AUTO) 80.8 % (42-75); PLATELET COUNT 278 X10'3 (140-440); RED BLOOD COUNT 3.23 X10'6 (4.20-5.60); RED CELL DISTRIBUTION WIDTH 14.2 % (11.5-14.5); WHITE BLOOD COUNT 7.1 X10'3 (4.5-11.0)
[2024-02-18 10:13] VITALS: TEMP 97.9
[2024-02-18 10:17] LABS: ELLIPTOCYTES FEW; PLATELET ESTIMATE NORMAL; TEAR DROP CELLS FEW
[2024-02-18 10:18] LABS: ALBUMIN 3.5 G/DL (3.4-5.0); ANION GAP 10 (8-16); BLOOD UREA NITROGEN 21 MG/DL (7-18); BUN/CREATININE RATIO 21.6 (10.0-20.0); CHLORIDE 99 MMOL/L (99-107); CREATININE 0.97 MG/DL (0.40-0.90); GLUCOSE 123 MG/DL (70-104); POTASSIUM 4.2 MMOL/L (3.5-5.1); PRO BRAIN NATRIURETIC PEPTIDE 792 PG/ML (0-450); SODIUM 133 MMOL/L (135-145); TOTAL CARBON DIOXIDE 24.5 MMOL/L (24-32); eCRCL 32 ML/MIN; eGFR 55 ML/MIN
[2024-02-18] MEDS: normal saline 1000ml 1,000 ML IV ONE (10:43)
[2024-02-18 12:13] LABS: BILIRUBIN,URINE NEGATIVE (Neg); CLARITY,URINE CLEAR (Clear); COLOR,URINE YELLOW (Yellow); GLUCOSE, URINE NEGATIVE (Neg); KETONES,URINE NEGATIVE (Neg); LEUKOCYTE ESTERASE ,URINE NEGATIVE (Neg); NITRITES, URINE NEGATIVE (Neg); OCCULT BLOOD,URINE NEGATIVE (Neg); PROTEIN,URINE 30 mg/dl (Neg); UROBILINOGEN,URINE 0.2 E.U/dL (0.2-1.0)
[2024-02-18 12:19] LABS: UA COLLECTION TYPE CLN CATCH MIDSTREAM
[2024-02-18 12:22] LABS: HYALINE CASTS >30 /LPF (NEGATIVE); MUCUS STRANDS FEW /LPF (Neg); SQUAMOUS EPITHELIAL CELL,UR MODERATE /LPF (FEW)
[2024-02-18 12:23] LABS: BACTERIA,URINE NONE SEEN /HPF (Neg); CAL OXALATE CRYSTALS 4+ /HPF (NEGATIVE); FINE GRANULAR CAST 0-3 /LPF (NEGATIVE); RBC,URINE 0-2 /HPF (0-2); WBC,URINE 0-4 /HPF (0-4)
[2024-02-18 13:01] VITALS: BP 178/71; PULSE 68; RESP 18; O2SAT 97
== END 2024-02-18 13:02 | disposition home or self-care (01) ==
LOC: ER 09:40
DX: R55 Syncope and collapse (principal); E86.0 Dehydration; I25.10 Atherosclerotic heart disease of native coronary artery without angina pectoris; F03.90 Unspecified dementia, unspecified severity, without behavioral disturbance, psychotic disturbance, mood disturbance, and anxiety; Z88.0 Allergy status to penicillin; Z88.2 Allergy status to sulfonamides; Z79.899 Other long term (current) drug therapy
CPT/HCPCS: 36415; 71045; 80048; 81001; 83880; 84484; 85008; 85025; 93005; 96360; 99285; J7030

== ENCOUNTER 2024-03-06 11:37 | Inpatient (IN) | payer MEDICARE, OTHER, MEDICAID ==
[~2024-03-06] VITALS: Ht 149.9 cm; Wt 50.9 kg
[2024-03-06 12:12] LABS: ALBUMIN 3.6 G/DL (3.4-5.0); ANION GAP 6 (8-16); BLOOD UREA NITROGEN 13 MG/DL (7-18); BUN/CREATININE RATIO 20.3 (10.0-20.0); CALCIUM 8.5 MG/DL (8.5-10.1); CHLORIDE 96 MMOL/L (99-107); CREATININE 0.64 MG/DL (0.40-0.90); GLUCOSE 91 MG/DL (70-104); POTASSIUM 4.3 MMOL/L (3.5-5.1); SODIUM 129 MMOL/L (135-145); TOTAL CARBON DIOXIDE 27.5 MMOL/L (24-32); eCRCL 48 ML/MIN; eGFR 89 ML/MIN
[2024-03-06] MEDS: normal saline 1000ML IV soln IVB ONE (16:10)
[2024-03-06 16:19] LABS: BASOPHILS % (AUTO) 0.7 % (0-1); EOSINOPHILS % (AUTO) 0.7 % (0-6); HEMATOCRIT 40.7 % (35.0-45.0); HEMOGLOBIN 13.8 g/dl (12.0-16.0); LYMPHOCYTES % (AUTO) 15.9 % (21-51); MEAN CORPUSCULAR HEMOGLOBIN 38.6 PG (27.0-31.0); MEAN CORPUSCULAR HGB CONC 33.9 g/dL (33.0-36.5); MEAN CORPUSCULAR VOLUME 113.7 FL (78-98); MEAN PLATELET VOLUME 7.6 FL (7.4-10.4); MONOCYTES # (AUTO) 0.5 X10'3 (0-0.9); MONOCYTES % (AUTO) 8.3 % (2-12); NEUTROPHILS # (AUTO) 4.6 X10'3 (1.8-7.7); NEUTROPHILS % (AUTO) 74.4 % (42-75); PLATELET COUNT 305 X10'3 (140-440); RED BLOOD COUNT 3.58 X10'6 (4.20-5.60); RED CELL DISTRIBUTION WIDTH 14.2 % (11.5-14.5); WHITE BLOOD COUNT 6.2 X10'3 (4.5-11.0)
[2024-03-06 16:31] LABS: APTT 26 SECONDS (22-32); INR 1.1 INR
[2024-03-06 16:42] LABS: MAGNESIUM 1.5 MG/DL (1.5-2.4); PRO BRAIN NATRIURETIC PEPTIDE 541 PG/ML (0-450)
[2024-03-06 17:15] LABS: ALANINE AMINOTRANSFERASE 25 U/L (12-78); ALBUMIN 3.8 G/DL (3.4-5.0); ALKALINE PHOSPHATASE 66 IU/L (46-116); ASPARTATE AMINO TRANSFERASE 23 U/L (10-37); BILIRUBIN,DIRECT 0.1 MG/DL (0-0.3); BILIRUBIN,TOTAL 0.3 MG/DL (0.1-1.0); TOTAL PROTEIN 7.7 G/DL (6.4-8.2)
[2024-03-06 17:31] LABS: PLATELET ESTIMATE NORMAL
[2024-03-06 17:32] LABS: ELLIPTOCYTES FEW; TEAR DROP CELLS FEW
[2024-03-06] MEDS ORDERED: acetaminophen 325mg tablet PO PRN (17:55)
[2024-03-06] MEDS ORDERED: magnesium Cl slow-release 64mg tablet PO PRN (17:55)
[2024-03-06] MEDS ORDERED: mag hydrox/Alum hydrox/simeth 30ml oral suspension PO PRN (17:55)
[2024-03-06] MEDS ORDERED: magnesium hydroxide 30ml (MOM) UD suspension PO PRN (17:55)
[2024-03-06] MEDS ORDERED: potassium Cl 20 mEq SR tablet PO PRN ×2 (17:55)
[2024-03-06] MEDS ORDERED: ondansetron/PF 4mg/2ml inj IV PRN (17:55)
[2024-03-06] MEDS ORDERED: potassium Cl 40MEQ/1/2NS 520ml 520 ML IV PRN (17:55)
[2024-03-06] MEDS ORDERED: magnesium sulf-water 4G/100mL 100 ML IV PRN (17:55)
[2024-03-06] MEDS ORDERED: magnesium sulf-water 2g/50mL 50 ML IV PRN (17:55)
[2024-03-06] MEDS ORDERED: iohexol 350MG/ML 100ml bottle IV ONE (18:46)
[2024-03-06] MEDS: PERFLUTREN PROTEIN-A MICROSPHR (Optison) 0.22 MG/ML 3ML VIAL IV ONE (19:20)
[2024-03-06] MEDS: normal saline 1000ml 1,000 ML IV SCH (19:46)
[2024-03-06] MEDS: K and/or MAG REPLACEMENT MC SCH (20:00)
[2024-03-06] MEDS: oxcarbazepine 150mg tablet PO SCH (20:55)
[2024-03-06] MEDS: LACOSAMIDE 50 MG TABLET PO SCH (20:55)
[2024-03-06] MEDS: donepezil 5mg tablet PO SCH (20:56)
[2024-03-06] MEDS: levetiracetam 250mg tablet PO SCH (20:56)
[2024-03-06] MEDS: chlorthalidone 25mg tablet PO SCH (22:45)
[2024-03-06] MEDS: losartan 25mg tablet PO SCH (23:07)
[2024-03-06] MEDS: carVEDilol 12.5mg tablet PO SCH (23:07)
[2024-03-07] MEDS ORDERED: CALC500T63 PO (00:46)
[2024-03-07] MEDS ORDERED: HYDR500C2 PO (00:46)
[2024-03-07] MEDS: HYDROchlorothiazide 25mg tablet PO ONE (02:20)
[2024-03-07 03:36] LABS: BASOPHILS # (AUTO) 0.1 X10'3 (0-0.2); BASOPHILS % (AUTO) 1.3 % (0-1); EOSINOPHILS # (AUTO) 0.1 X10'3 (0-0.9); HEMATOCRIT 37.3 % (35.0-45.0); HEMOGLOBIN 12.8 g/dl (12.0-16.0); LYMPHOCYTES % (AUTO) 16.1 % (21-51); MEAN CORPUSCULAR HEMOGLOBIN 38.8 PG (27.0-31.0); MEAN CORPUSCULAR HGB CONC 34.3 g/dL (33.0-36.5); MEAN PLATELET VOLUME 7.8 FL (7.4-10.4); MONOCYTES # (AUTO) 0.5 X10'3 (0-0.9); NEUTROPHILS # (AUTO) 4.5 X10'3 (1.8-7.7); NEUTROPHILS % (AUTO) 73.6 % (42-75); PLATELET COUNT 287 X10'3 (140-440); RED CELL DISTRIBUTION WIDTH 14.1 % (11.5-14.5); WHITE BLOOD COUNT 6.2 X10'3 (4.5-11.0)
[2024-03-07 03:58] LABS: ALBUMIN 3.3 G/DL (3.4-5.0); ANION GAP 9 (8-16); BLOOD UREA NITROGEN 13 MG/DL (7-18); BUN/CREATININE RATIO 26.5 (10.0-20.0); CALCIUM 8.2 MG/DL (8.5-10.1); CHLORIDE 101 MMOL/L (99-107); CHOL/HDL RATIO 1.8 (0.00-4.99); CHOLESTEROL 204 MG/DL (0-200); CREATININE 0.49 MG/DL (0.40-0.90); GLUCOSE 97 MG/DL (70-104); HDL CHOLESTEROL 111 MG/DL (35-60); LDL CHOLESTEROL 65 MG/DL (50-100); POTASSIUM 3.9 MMOL/L (3.5-5.1); SODIUM 135 MMOL/L (135-145); THYROID STIMULATING HORMONE 4.95 ulU/ml (0.34-4.50); TOTAL CARBON DIOXIDE 24.8 MMOL/L (24-32); TRIGLYCERIDES 27 MG/DL (20-135); eCRCL 62 ML/MIN; eGFR > 90 ML/MIN
[2024-03-07] MEDS ORDERED: levoTHYROXINE 125mcg tablet PO SCH (07:00)
[2024-03-07] MEDS: DESVENLAFAXINE SUCCINATE 50 MG PO SCH (08:00)
[2024-03-07] MEDS: levoTHYROXINE 112mcg tablet PO SCH (08:00)
[2024-03-07] MEDS: cholecalciferol (vitamin D3) 1,000 unit (25mcg) tablet PO SCH (08:01)
[2024-03-07] MEDS: amLODIPine 5mg tablet PO SCH (08:01)
[2024-03-07] MEDS: HYDROchlorothiazide 25mg tablet PO SCH (08:02)
[2024-03-07] MEDS: lisinopril 2.5mg tablet PO SCH (08:02)
[2024-03-07] MEDS: carVEDilol 3.125mg tablet PO SCH (08:02)
[2024-03-07] MEDS: multivitamins, therapeutics tablet PO SCH (08:02)
[2024-03-07] MEDS: enoxaparin 40mg/0.4ml syringe SUBCUT SCH (08:03)
[2024-03-07] MEDS: hydrALAZINE 20mg/ml inj. IV SCH (09:15)
[2024-03-07 11:00] VITALS: BP 123/48; PULSE 63; RESP 16; RESP 18; TEMP 97.8; O2SAT 94; O2SAT 98
[2024-03-07] MEDS ORDERED: FOLI0.8T22 PO (15:34)
[2024-03-07] MEDS ORDERED: thiamine tablet PO (15:34)
[2024-03-07 16:00] VITALS: BP 148/69; PULSE 16; RESP 16; TEMP 98.3; O2SAT 97
[2024-03-07 18:00] VITALS: BP 152/63; PULSE 71; RESP 14; TEMP 98.2; O2SAT 95
[2024-03-07] MEDS: thiamine 100mg tablet PO SCH (20:09)
[2024-03-07 22:00] VITALS: BP_SYST 131; BP_SYST 160; BP_SYST 95; BP_DIAS 56; BP_DIAS 68; BP_DIAS 72; PULSE 71; PULSE 75; PULSE 82; RESP 16; TEMP 97.4; O2SAT 97
[2024-03-08] VITALS (7 sets, daily range): BP systolic 100–178; BP diastolic 53–86; PULSE 69–86; RESP 16; TEMP 97.2–98.4; O2SAT 97–99
[2024-03-08 06:29] LABS: BASOPHILS # (AUTO) 0.1 X10'3 (0-0.2); BASOPHILS % (AUTO) 1.1 % (0-1); EOSINOPHILS # (AUTO) 0.1 X10'3 (0-0.9); EOSINOPHILS % (AUTO) 1.7 % (0-6); LYMPHOCYTES # (AUTO) 1.2 X10'3 (1.1-4.8); MEAN CORPUSCULAR HEMOGLOBIN 38.6 PG (27.0-31.0); MEAN CORPUSCULAR HGB CONC 34.3 g/dL (33.0-36.5); MEAN CORPUSCULAR VOLUME 112.6 FL (78-98); MEAN PLATELET VOLUME 7.7 FL (7.4-10.4); MONOCYTES # (AUTO) 0.4 X10'3 (0-0.9); MONOCYTES % (AUTO) 6.7 % (2-12); NEUTROPHILS # (AUTO) 4.1 X10'3 (1.8-7.7); NEUTROPHILS % (AUTO) 69.5 % (42-75); PLATELET COUNT 295 X10'3 (140-440); RED BLOOD COUNT 3.38 X10'6 (4.20-5.60); RED CELL DISTRIBUTION WIDTH 14.1 % (11.5-14.5); WHITE BLOOD COUNT 5.9 X10'3 (4.5-11.0)
[2024-03-08 06:47] LABS: ALBUMIN 3.4 G/DL (3.4-5.0); ANION GAP 8 (8-16); BLOOD UREA NITROGEN 15 MG/DL (7-18); BUN/CREATININE RATIO 31.9 (10.0-20.0); CALCIUM 8.8 MG/DL (8.5-10.1); CHLORIDE 95 MMOL/L (99-107); CREATININE 0.47 MG/DL (0.40-0.90); GLUCOSE 90 MG/DL (70-104); POTASSIUM 3.7 MMOL/L (3.5-5.1); SODIUM 131 MMOL/L (135-145); TOTAL CARBON DIOXIDE 28.5 MMOL/L (24-32); eCRCL 65 ML/MIN; eGFR > 90 ML/MIN
[2024-03-08] MEDS: PERFLUTREN PROTEIN-A MICROSPHR (Optison) 0.22 MG/ML 3ML VIAL IV ONE (09:00)
[2024-03-08] MEDS: multivitamins, therapeutics tablet PO SCH (09:19)
[2024-03-08] MEDS: folic acid/vitamin B complex w/vitamin C 0.8mg tablet PO SCH (09:20)
[2024-03-08] MEDS: amLODIPine 5mg tablet PO SCH (09:30)
[2024-03-08] MEDS ORDERED: FLUD0.1T PO (15:44)
[2024-03-08] MEDS ORDERED: NOR5T PO (15:52)
[2024-03-08] MEDS ORDERED: LOSA25TA41 PO (15:52)
== END 2024-03-08 17:00 | disposition home or self-care (01) | DRG 101 ==
LOC: ER 11:38 → ED HOLD 17:57 → ORTHO 4S 03-07 10:55
PROVIDERS: ADMIT Family Medicine; ATTEND Family Medicine
PROC: B3251ZZ Computerized Tomography (CT Scan) of Bilateral Common Carotid Arteries using Low Osmolar Contrast (ICD-10-PCS; 2024-03-06)
PROC: B32G1ZZ Computerized Tomography (CT Scan) of Bilateral Vertebral Arteries using Low Osmolar Contrast (ICD-10-PCS; 2024-03-06)
PROC: B32R1ZZ Computerized Tomography (CT Scan) of Intracranial Arteries using Low Osmolar Contrast (ICD-10-PCS; 2024-03-06)
PROC: B3281ZZ Computerized Tomography (CT Scan) of Bilateral Internal Carotid Arteries using Low Osmolar Contrast (ICD-10-PCS; 2024-03-06)
PROC: 4A00X4Z Measurement of Central Nervous Electrical Activity, External Approach (ICD-10-PCS; 2024-03-06)
PROC: 4A00X4Z Measurement of Central Nervous Electrical Activity, External Approach (ICD-10-PCS; principal; 2024-03-07)
DX: G40.89 Other seizures (principal); E87.1 Hypo-osmolality and hyponatremia; S10.83XA Contusion of other specified part of neck, initial encounter; I95.1 Orthostatic hypotension; I11.0 Hypertensive heart disease with heart failure; F03.90 Unspecified dementia, unspecified severity, without behavioral disturbance, psychotic disturbance, mood disturbance, and anxiety; I50.9 Heart failure, unspecified; W18.39XA Other fall on same level, initial encounter; Y93.89 Activity, other specified; Y92.89 Other specified places as the place of occurrence of the external cause; Y99.8 Other external cause status; Z88.0 Allergy status to penicillin; Z88.2 Allergy status to sulfonamides; Z79.899 Other long term (current) drug therapy; Z90.49 Acquired absence of other specified parts of digestive tract
CPT/HCPCS: 36415; 70450; 70496; 70498; 71045; 80048; 80061; 80076; 83036; 83735; 83880; 83930; 84443; 84484; 85008; 85025; 85610; 85730; 87081; 92508; 92616; 93005; 95816; 96360; 97116; 97161; 97530; 99285; G0378; J0360; J1650; J7030; Q9967

== ENCOUNTER 2024-03-22 09:00 | Emergency (ER) | payer MEDICARE, OTHER, MEDICAID ==
[~2024-03-22] VITALS: Ht 160 cm; Wt 58.6 kg
[~2024-03-22 09:00] MED LIST changes: +CALC500T63 PO; +FLUD0.1T PO; +FOLI0.8T22 PO; -FURO-150 PO; +HYDR500C2 PO; -LISI2.5T14 PO; +LOSA25TA41 PO; +NOR5T PO; +thiamine tablet PO
[2024-03-22 09:03] VITALS: TEMP 97.7
[2024-03-22 10:43] LABS: BASOPHILS % (AUTO) 0.4 % (0-1); EOSINOPHILS # (AUTO) 0.1 X10'3 (0-0.9); EOSINOPHILS % (AUTO) 0.7 % (0-6); HEMATOCRIT 40.8 % (35.0-45.0); HEMOGLOBIN 13.6 g/dl (12.0-16.0); LYMPHOCYTES # (AUTO) 0.7 X10'3 (1.1-4.8); LYMPHOCYTES % (AUTO) 8.6 % (21-51); MEAN CORPUSCULAR HEMOGLOBIN 38.3 PG (27.0-31.0); MEAN CORPUSCULAR HGB CONC 33.4 g/dL (33.0-36.5); MEAN CORPUSCULAR VOLUME 114.6 FL (78-98); MEAN PLATELET VOLUME 7.7 FL (7.4-10.4); MONOCYTES # (AUTO) 0.4 X10'3 (0-0.9); MONOCYTES % (AUTO) 5.3 % (2-12); NEUTROPHILS # (AUTO) 6.8 X10'3 (1.8-7.7); PLATELET COUNT 320 X10'3 (140-440); RED BLOOD COUNT 3.56 X10'6 (4.20-5.60); RED CELL DISTRIBUTION WIDTH 13.9 % (11.5-14.5)
[2024-03-22 10:55] LABS: ALANINE AMINOTRANSFERASE 24 U/L (12-78); ALBUMIN 3.7 G/DL (3.4-5.0); ALKALINE PHOSPHATASE 58 IU/L (46-116); ANION GAP 7 (8-16); ASPARTATE AMINO TRANSFERASE 31 U/L (10-37); BILIRUBIN,TOTAL 0.4 MG/DL (0.1-1.0); BLOOD UREA NITROGEN 13 MG/DL (7-18); BUN/CREATININE RATIO 15.7 (10.0-20.0); CALCIUM 8.9 MG/DL (8.5-10.1); CHLORIDE 96 MMOL/L (99-107); CREATININE 0.83 MG/DL (0.40-0.90); GLUCOSE 100 MG/DL (70-104); POTASSIUM 4.1 MMOL/L (3.5-5.1); SODIUM 131 MMOL/L (135-145); TOTAL CARBON DIOXIDE 27.9 MMOL/L (24-32); TOTAL PROTEIN 7.4 G/DL (6.4-8.2); eCRCL 45 ML/MIN; eGFR 66 ML/MIN
[2024-03-22 11:04] LABS: ELLIPTOCYTES FEW; PLATELET ESTIMATE NORMAL; PRO BRAIN NATRIURETIC PEPTIDE 624 PG/ML (0-450); TEAR DROP CELLS FEW
[2024-03-22] MEDS: normal saline 1000ML IV soln IVB ONE (11:36)
[2024-03-22 11:39] VITALS: RESP 14; O2SAT 97
[2024-03-22 12:20] VITALS: BP 136/72; PULSE 78
[2024-03-22 12:48] LABS: BILIRUBIN,URINE NEGATIVE (Neg); CLARITY,URINE SLIGHTLY CLOUDY (Clear); COLOR,URINE YELLOW (Yellow); GLUCOSE, URINE NEGATIVE (Neg); KETONES,URINE NEGATIVE (Neg); LEUKOCYTE ESTERASE ,URINE SMALL (Neg); NITRITES, URINE NEGATIVE (Neg); OCCULT BLOOD,URINE NEGATIVE (Neg); PH,URINE 6.5 (4.8-8.0); PROTEIN,URINE 100 mg/dl (Neg)
[2024-03-22 12:51] LABS: UA COLLECTION TYPE OTHER
[2024-03-22 12:54] LABS: BACTERIA,URINE 1+ /HPF (Neg); MUCUS STRANDS FEW /LPF (Neg); RBC,URINE 0-2 /HPF (0-2); SQUAMOUS EPITHELIAL CELL,UR FEW /LPF (FEW)
[2024-03-22 12:55] LABS: CELLULAR CAST 0-4 /LPF (NEGATIVE); TRANSITIONAL EPI CELLS,URINE MODERATE /HPF
[2024-03-22 12:56] LABS: COARSE GRANULAR CAST 0-3 /LPF (NEGATIVE); FINE GRANULAR CAST 0-3 /LPF (NEGATIVE); WBC CLUMPS,URINE FEW /HPF (NEGATIVE)
== END 2024-03-22 12:52 | disposition home or self-care (01) ==
LOC: ER 09:01
DX: I95.1 Orthostatic hypotension (principal); F03.90 Unspecified dementia, unspecified severity, without behavioral disturbance, psychotic disturbance, mood disturbance, and anxiety; I10 Essential (primary) hypertension; Z88.0 Allergy status to penicillin; Z88.2 Allergy status to sulfonamides; Z79.899 Other long term (current) drug therapy
CPT/HCPCS: 36415; 71045; 80053; 81001; 83880; 84484; 85008; 85025; 93005; 96360; 99285; J7030